=== PATIENT | female | born 1980 | race Caucasian/White ===

== ENCOUNTER 2017-11-02 18:32 | Emergency (ER) | payer OTHER ==
[~2017-11-02] VITALS: Ht 162.6 cm; Wt 109.8 kg
[~2017-11-02 18:32] MED LIST: ACTIGALL300 MG PO; ANTIVERT25 MG PO; ASPIR 8181 M1 PO; ATORVASTATIN CA10 MG PO; BACTRIM,SEPT1 TABLET PO; BENTYL10 MG PO; BUSPAR10 MG PO; CIPRO250 MG PO; ESCITALOPRAM OX20 MG PO; IBUPROFEN800 MG PO; LEXAPRO20 MG PO; NORCO 5/3251 TABLET PO; PERCOCET 5/31 TABLET PO; PRILOSEC40 MG PO; PROAIR HFA8.5 GM IH; PYRIDIUM200 MG PO; ZOFRAN ODT4 MG PO; ZOFRAN4 MG PO
[2017-11-02] MEDS ORDERED: HYCODAN SYRUP480 ML PO (20:16)
[2017-11-02 21:11] VITALS: BP 120/74
== END 2017-11-02 21:12 | disposition home or self-care (01) ==
LOC: EME 18:32
DX: J06.9 Acute upper respiratory infection, unspecified (principal); J45.909 Unspecified asthma, uncomplicated
CPT/HCPCS: 71020; 94640; 99281; 99284

== ENCOUNTER 2018-01-21 18:50 | Emergency (ER) | payer OTHER ==
[~2018-01-21] VITALS: Ht 162.6 cm; Wt 106.5 kg
[~2018-01-21 18:50] MED LIST changes: +HYCODAN SYRUP480 ML PO
[2018-01-21 19:46] LABS: HEMATOCRIT 39.9 % (36.0-46.0); HEMOGLOBIN 13.4 G/DL (11.9-15.5); MCH 28.3 PG (29.0-34.0); MCHC 33.6 G/DL (30.0-36.0); MCV 84.4 FL (83-99); PLATELET COUNT 232 K/uL (156-360); RBC DIS.WIDTH-CV 13.9 % (11.8-14.6); RBC DIS.WIDTH-SD 42.8 % (39-53); RED BLOOD COUNT 4.73 M/uL (3.80-5.20); WHITE BLOOD COUNT 10.3 K/uL (4.1-10.2)
[2018-01-21 19:55] LABS: CHLORIDE 105 mEq/L (99-109); POTASSIUM 3.7 mEq/L (3.7-5.4); SODIUM 145 mEq/L (136-147)
[2018-01-21 19:56] LABS: GLUCOSE 129 mg/dL (70-99)
[2018-01-21 20:00] LABS: CREATININE 0.8 mg/dL (0.6-1.3); GFR ESTIMATE (CALCULATED) > 59 mL/min/
[2018-01-21 20:01] LABS: UREA NITROGEN (BUN) 11 mg/dL (9-23)
[2018-01-21 20:11] LABS: TROP-I INTERPRETATION NEGATIVE; TROPONIN-I < 0.01 ng/mL (0.0-0.30)
[2018-01-21 21:42] LABS: D-DIMER ELISA < 150.00 ng/mLDDU (<230)
[2018-01-21] MEDS ORDERED: PREDNISONE10 M1 PO (21:57)
[2018-01-21] MEDS ORDERED: VENTOLIN HFA18 GM IH (21:57)
[2018-01-21 22:18] VITALS: BP 121/74
== END 2018-01-21 22:22 | disposition home or self-care (01) ==
LOC: EME 18:50
DX: J06.9 Acute upper respiratory infection, unspecified (principal); J45.909 Unspecified asthma, uncomplicated; F42.9 Obsessive-compulsive disorder, unspecified; E28.2 Polycystic ovarian syndrome
CPT/HCPCS: 71046; 80048; 84484; 85027; 85379; 93005; 99281; 99283

== ENCOUNTER 2018-02-03 18:41 | Emergency (ER) | payer OTHER ==
[~2018-02-03] VITALS: Ht 162.6 cm; Wt 108.3 kg
[~2018-02-03 18:41] MED LIST changes: +PREDNISONE10 M1 PO; +VENTOLIN HFA18 GM IH
[2018-02-03 18:59] LABS: HEMATOCRIT 42.5 % (36.0-46.0); HEMOGLOBIN 14.1 G/DL (11.9-15.5); MCH 28.1 PG (29.0-34.0); MCHC 33.2 G/DL (30.0-36.0); MCV 84.8 FL (83-99); PLATELET COUNT 287 K/uL (156-360); RBC DIS.WIDTH-SD 42.7 % (39-53); RED BLOOD COUNT 5.01 M/uL (3.80-5.20); WHITE BLOOD COUNT 12.2 K/uL (4.1-10.2)
[2018-02-03 19:07] LABS: ALBUMIN 4.6 g/dL (3.2-4.8); CHLORIDE 103 mEq/L (99-109); POTASSIUM 3.6 mEq/L (3.7-5.4); SODIUM 140 mEq/L (136-147)
[2018-02-03 19:09] LABS: GLUCOSE 76 mg/dL (70-99); TOTAL PROTEIN 8.2 g/dL (6.4-8.3)
[2018-02-03 19:11] LABS: TOTAL BILIRUBIN 1.3 mg/dL (0.0-1.0)
[2018-02-03 19:13] LABS: ALKALINE PHOSPHATASE 96 IU/L (3-129); CREATININE 0.8 mg/dL (0.6-1.3); GFR ESTIMATE (CALCULATED) > 59 mL/min/
[2018-02-03 19:14] LABS: UREA NITROGEN (BUN) 9 mg/dL (9-23)
[2018-02-03 19:15] LABS: AST (GOT) 33 IU/L (2-34)
[2018-02-03 19:16] LABS: ALT (GPT) 45 IU/L (3-49)
[2018-02-03 19:33] LABS: APPEARANCE SL.HAZY ((CLEAR)); BILIRUBIN NEGATIVE; BLOOD NEGATIVE; COLOR YELLOW ((YELLOW)); GLUCOSE (STRIP) NEGATIVE; KETONES NEGATIVE; LEUKOCYTES NEGATIVE; NITRITE NEGATIVE; PROTEIN (STRIP) NEGATIVE; SPECIFIC GRAVITY 1.026 (1.000-1.030); UROBILINOGEN 0.2 MG/DL (0.2-1.0)
[2018-02-03 19:40] LABS: BACTERIA RARE /HPF; EPITHELIAL CELLS 1+ /HPF; MUCUS 1+ /LPF; RED BLOOD CELLS 0-5 /HPF (0-5); UCUL ADDED? NO; WHITE BLOOD CELLS 0-5 /HPF (0-5)
[2018-02-04 00:06] VITALS: BP 104/60
== END 2018-02-04 00:06 | disposition home or self-care (01) ==
LOC: EME 18:41
DX: R10.2 Pelvic and perineal pain (principal); K76.0 Fatty (change of) liver, not elsewhere classified; Z90.710 Acquired absence of both cervix and uterus
CPT/HCPCS: 76856; 80053; 81003; 84702; 85027; 99281; 99284